=== PATIENT | female | born 1970 | race Caucasian/White ===

== ENCOUNTER → 2016-07-03 | Outpatient (CLI) | payer OTHER ==
--- NOTE | 2016-07-03 11:28 | XR ---
EXAMINATION TYPE: XR foot complete LT DATE OF EXAM: 07/03/2016 11:21 AM CLINICAL HISTORY: Left foot pain after injury. TECHNIQUE: Frontal, lateral, and oblique images of the left foot are obtained. COMPARISON: None FINDINGS: There is no acute fracture/dislocation evident in the left foot. There is varus positionin g and flexion in distal fourth and fifth toes. There is mild spurring and subchondral cystic change f irst metatarsal head. Mild focal soft tissue swelling medial aspect first metatarsal head is noted. IMPRESSION: There is no acute fracture or dislocation in the left foot.
== END | disposition home or self-care (01) ==
LOC: RADXRMAIN 10:54
PROVIDERS: ATTEND Emergency Medicine
DX: S97.82XA Crushing injury of left foot, initial encounter (principal)

== ENCOUNTER → 2016-09-25 | Outpatient (CLI) | payer BC ==
--- NOTE | 2016-09-25 22:20 | US ---
EXAMINATION TYPE: US transvaginal DATE OF EXAM: 09/25/2016 4:05 PM COMPARISON: NONE CLINICAL HISTORY: 46-year-old female N63 unspecified lump, N64.4 Mastodynia N85.2 hypertroph. TECHNIQUE: Multiple transvaginal sonographic images of the pelvis are obtained. Date of LMP: 09/13/2016 FINDINGS: Uterus: Anteverted measuring 9.7 x 4.9 x 9.4 cm with a large right-sided fibroid measuring 5.4 cm. Endometrial Stripe: 1.1 cm, within normal limits. Right Ovary: 4.6 x 2.2 x 3.5 cm for a volume of 17.7 mL. Left Ovary: 6.3 x 3.2 x 7.9 cm enlarged secondary to a 6.1 cm simple cyst. No evident adnexal abnormality or cul-de-sac free fluid. IMPRESSION: 1. A large 5.4 cm right-sided uterine fibroid. 2. Large 6.1 cm simple cyst involving the left ovary. These types of lesions are almost certainly augustine ign and yearly follow-up can be performed.
--- NOTE | 2016-09-26 08:12 | MM ---
Reason for exam: clinical finding. Last mammogram was performed 1 year and 6 months ago. History: Patient has history of other cancer at age 29. Family history of breast cancer in maternal aunt. Indicated problem(s): lump or thickening and pain in the right breast. Physical Findings: Nurse Summary: 1cm nodule in the right breast at 11 o'clock (nurse mm). MG 3D Diag Mammo W/Cad CASIMIRO Bilateral CC and MLO view(s) were taken. Prior study comparison: April 07, 2015, left breast MG 3d work up w/cad LT. March 28, 2015, bilateral MG screening mammo w CAD. The breast tissue is heterogeneously dense. This may lower the sensitivity of mammography. Asymmetric breast tissue. There is no discrete abnormality. These results were verbally communicated with the patient and result sheet given to the patient on 09/25/16. ASSESSMENT: Negative, BI-RAD 1 RECOMMENDATION: Routine screening mammogram of both breasts in 1 year. Manage patient on a clinical basis.
--- NOTE | 2016-09-26 08:13 | USB ---
Reason for exam: clinical finding. History: Patient has history of other cancer at age 29. Family history of breast cancer in maternal aunt. Indicated problem(s): lump or thickening and pain in the right breast. US Breast RT Right breast ultrasound includes all four quadrants, the retroareolar region and axilla. Finding demonstrates dense tissue seen at BB. These results were verbally communicated with the patient and result sheet given to the patient on 09/25/16. ASSESSMENT: Negative, BI-RAD 1 RECOMMENDATION: Routine screening mammogram of both breasts in 1 year. Manage patient on a clinical basis.
== END | disposition home or self-care (01) ==
LOC: RADMAMWWP 14:51
PROVIDERS: ATTEND Family Medicine
DX: N64.4 Mastodynia (principal); N63 Unspecified lump in breast; D25.9 Leiomyoma of uterus, unspecified; N83.202 Unspecified ovarian cyst, left side
CPT/HCPCS: 76830; 76641; G0204; G0279

== ENCOUNTER → 2016-11-15 | Outpatient (CLI) | payer BC | END | disposition home or self-care (01) | LOC: LABWHC1 10:36 | PROVIDERS: ATTEND Obstetrics & Gynecology | DX: N83.202 Unspecified ovarian cyst, left side (principal) | CPT/HCPCS: 36415; 86304 ==

== ENCOUNTER → 2016-12-05 | Outpatient (CLI) | payer BC ==
--- NOTE | 2016-12-05 11:26 | US ---
EXAMINATION TYPE: US pelvic complete DATE OF EXAM: 12/05/2016 COMPARISON: 09/25/2016 CLINICAL HISTORY: 46-year-old female N83.20 previous ovarian cysts. TECHNIQUE: Transabdominal (TA) FINDINGS: Date of LMP: 11/25/16 EXAM MEASUREMENTS: Uterus: Anteverted measuring 9.4 x 4.0 x 7.6 cm. There is diffuse myometrial heterogeneity with the right sided focal fibroid measuring 5.8 cm. This appears primarily intramural but likely has a submuc osal component. Endometrial Stripe: 0.6 cm, within normal limits. Right Ovary: 3.9 x 2.4 x 3.0 cm for a volume of 14.7 mL. A dominant follicle measures 1.5 cm. Left Ovary: 3.7 x 1.7 x 1.9 cm with a 1.4 cm paraovarian cyst. No evident adnexal abnormality or cul-de-sac free fluid. IMPRESSION: 1. Heterogeneous, fibroid uterus with a dominant 5.8 cm focal fibroid on the right. This may have a s ubmucosal component. 2. Interval resolution of the previous large simple cyst within the left ovary. A small 1.4 cm paraov christopher cyst remains.
== END | disposition home or self-care (01) ==
LOC: RADUSWWP 08:57
PROVIDERS: ATTEND Obstetrics & Gynecology
DX: D25.9 Leiomyoma of uterus, unspecified (principal); N83.202 Unspecified ovarian cyst, left side
CPT/HCPCS: 76856

== ENCOUNTER → 2018-06-12 | Outpatient (CLI) | payer BC ==
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
--- NOTE | 2018-06-13 07:36 | USB ---
History: Patient has history of other cancer at age 29. Family history of breast cancer in maternal aunt at age 45. US Breast Limited BILAT Left limited breast ultrasound including focal area of concern, retroareolar and axilla demonstrates a 0.2 x 0.3 x 0.4 cm mixed lesion at 11 o'clock that connects to small duct and is a possible papilloma, Biopsy is recommended. An axillary node is noted that is normal appearing. Right complete breast ultrasound includes all four quadrants, the retroareolar region and axilla. Finding demonstrates a 0.9 x 0.7 x 0.7 cm solid lesion at 11 o'clock that corresponds to the palpable, Biopsy is recommended. An axillary node is noted that is normal appearing. ASSESSMENT: Suspicious, BI-RAD 4 RECOMMENDATION: Ultrasound core biopsy of both breasts. Called Dr. Hendrickson with mammographic findings and has scheduled an appointment for the patient for 07/17/18 at 9:[address] Leach. The ultrasoud guided core biopsy is to be done on 06/25/18 at 12:20 pm. PRELIMINARY REPORT CALLED AND FAXED TO DR. LEACH ON 06/12/18.
== END | disposition home or self-care (01) ==
LOC: RADMAMWWP 14:08
PROVIDERS: ATTEND Physician Assistant Medical
DX: N63.24 Unspecified lump in the left breast, lower inner quadrant (principal); N64.4 Mastodynia
CPT/HCPCS: 77066

== ENCOUNTER → 2018-06-25 | Day surgery (SDC) | payer BC ==
[2018-06-25 11:32] VITALS: RESP 16
[2018-06-25 14:35] VITALS: BP 136/74; PULSE 73; TEMP 98.6
--- NOTE | 2018-06-25 17:53 | USB ---
EXAMINATION TYPE: US biopsy breast VAD RT, US biopsy breast VAD LT, Postbiopsy MG diagnostic mammo BI wo CAD DATE OF EXAM: 06/25/2018 CLINICAL HISTORY: 48-year-old female referred for US guided breast biopsy, R92.8 Abnormal Mammo. TECHNIQUE: Ultrasound guided core biopsy of the bilateral breast. COMPARISON: 06/12/2018 FINDINGS: The procedure of ultrasound guided core biopsy was explained to the patient. Benefits, alternatives, and risks were discussed. An informed consent was then obtained. The patient was placed in supine positioning for imaging and for the procedure. The overlying skin was prepped and draped in usual sterile fashion. Lidocaine buffered with bicarbonate was used as anesthetic into the skin and subcutaneous tissue up to area of concern in each breast in turn. RIGHT: During the initial real-time scanning, the intended 11:00 target resembled islands of fibroglandular tissue. Attention was directed to the 9:00 zone BC patient directed site of palpable abnormality which was initially detected by the nurse on the patient's workup. This region shows a 1.3 x 0.6 x 0.9 cm lobulated, hypoechoic solid mass which is targeted for biopsy. Under ultrasound guidance, a 13-gauge vacuum-assisted mammotome Elite biopsy gun device was used to obtain 6 core samples. Following this, a ribbon clip was left in lesion. Left: Under ultrasound guidance, a 13-gauge vacuum-assisted mammotome Elite biopsy gun device was used to obtain 6 core samples of the 11:00 cystic lesion. The entire region was sampled in the lesion collapsed with the first pass. Following this, a coil clip was left in lesion. The patient tolerated the procedure well without any immediate complication. The patient was kept in the radiology department for short stay after the procedure and then discharged home in stable condition. Post procedure mammograms show clips in place. IMPRESSION: Successful, uncomplicated ultrasound guided core biopsy of area of concern: 1. RIGHT: Lobulated 1.3 x 0.9 x 0.6 cm solid mass at 9:00 corresponding to the palpable site. Note that an imaging correlate was not initially identified on the patient's original 06/12/2018 workup. 2. LEFT: Small 11:00 cystic lesion possibly associated with a duct. Full pathology results to follow. Pathology Results: Benign A. RIGHT BREAST AT NINE O'CLOCK POSITION, NEEDLE CORE BIOPSIES: Fibroadenoma. B. LEFT BREAST AT ELEVEN O'CLOCK POSITION, NEEDLE CORE BIOPSIES: Benign breast parenchyma with mild focal fibrocystic changes. Recommendation Follow up ultrasound of both breasts in 6 months. MTDD
== END ==
LOC: RADUSWWP 11:07
PROVIDERS: ATTEND Surgery
DX: D24.1 Benign neoplasm of right breast (principal); N60.12 Diffuse cystic mastopathy of left breast
CPT/HCPCS: 88305; 77066; 19083; 19084; A4648; J2001

== ENCOUNTER → 2018-12-11 | Outpatient (CLI) | payer BC ==
--- NOTE | 2018-12-11 11:12 | USB ---
Reason for exam: follow-up at short interval from prior study. History: Patient has history of other cancer at age 29. Family history of breast cancer in maternal aunt at age 45. Benign US biopsy breast add'l VAD LT of the left breast, June 25, 2018. Benign US biopsy breast VAD RT of the right breast, June 25, 2018. Physical Findings: Nurse Summary: 1cm palpable lump right breast 11 o'clock (nurse mj). US Breast Limited BILAT Right limited breast ultrasound including focal area of concern, retroareolar and axilla demonstrates a 12 x 6 x 9mm lobular, solid lesion with clip at 9 o'clock, previously biopsied, a 7mm oval lymph node at the axilla tail and a 5mm oval lymph node at the axilla tail. Left limited breast ultrasound including focal area of concern, retroareolar and axilla demonstrates a 2 x 2 x 3mm oval, hypoechoic lesion with possible clip at 11 o'clock, smaller in size. These results were verbally communicated with the patient and result sheet given to the patient on 12/11/18. ASSESSMENT: Benign, BI-RAD 2 RECOMMENDATION: Routine screening mammogram of both breasts in 6 months. Back on schedule.
== END | disposition home or self-care (01) ==
LOC: RADUSWWP 10:11
PROVIDERS: ATTEND Surgery
DX: R92.8 Other abnormal and inconclusive findings on diagnostic imaging of breast (principal)

== ENCOUNTER → 2024-03-05 | Outpatient (CLI) | payer OTHER ==
--- NOTE | 2024-03-09 14:22 | MM ---
Reason for Exam: Screening (asymptomatic). Last mammogram was performed 5 year(s) and 9 month(s) ago. Patient History: Menarche at age 17. First Full-Term at age 29. Postmenopausal. Other cancer, age 29. 06/25/2018, Benign Core Biopsy on the left side. 06/25/2018, Benign Core Biopsy on the right side. Maternal aunt had breast cancer, age 45. Maternal grandmother had ovarian cancer. Risk Values: Winnie 5 year model risk: 1.7%. NCI Lifetime model risk: 12.7%. Prior Study Comparison: 09/25/2016 Bilateral Diagnostic Mammogram, [facility]. 06/12/2018 Bilateral Diagnostic Mammogram, [facility]. 06/25/2018 Bilateral Diagnostic Mammogram, [facility]. Tissue Density: The breasts are heterogeneously dense, which may obscure small masses. Findings: Analyzed By CAD. Bilateral breast biopsy clips. Right breast: There is no suspicious group of microcalcifications or new suspicious mass. Left breast: There is no suspicious group of microcalcifications or new suspicious mass. Overall Assessment: Benign, BI-RAD 2 Management: Screening Mammogram of both breasts in [address] [facility] will attempt to contact patient to return for supplemental views and ultrasound if indicated. Patient should continue monthly self-breast exams. A clinical breast exam by your physician is recommended on an annual basis. This exam should not preclude additional follow-up of suspicious palpable abnormalities. Note on Winnie scores and lifetime risk: 1. A Winnie score greater than 3% is considered moderate risk. If this is the case, consider specialist referral to assess eligibility for a risk reducing agent. 2. If overall lifetime risk for the development of breast cancer is 20% or higher, the patient may qualify for future screening with alternating mammogram and breast MRI. [facility], , 03/09/2024 2:19 PM. Electronically signed and approved by: Pankaj Arias DO
== END | disposition home or self-care (01) ==
LOC: RADMAMWWP 15:37
PROVIDERS: ATTEND Family Medicine
CPT/HCPCS: 77063; 77067